=== PATIENT | female | born 1955 | race Caucasian/White ===

== ENCOUNTER 2025-01-08 11:26 | Outpatient (CLI) | payer BC | END 2025-01-08 11:27 | disposition home or self-care (01) | LOC: BICRAD 11:26 | PROVIDERS: ATTEND Nurse Practitioner Family | DX: M79.602 Pain in left arm (principal); M19.012 Primary osteoarthritis, left shoulder ==

== ENCOUNTER 2025-04-22 14:30 | Outpatient (CLI) | payer BC, MEDICARE | END 2025-04-22 14:31 | disposition home or self-care (01) | LOC: CT 14:30 | PROVIDERS: ATTEND Nurse Practitioner Family | DX: R51.9 Headache, unspecified (principal); Z82.3 Family history of stroke | CPT/HCPCS: 70450 ==